=== PATIENT | female | born 1930 | race Caucasian/White ===

== ENCOUNTER → 2017-10-20 | Outpatient (CLI) | payer MEDICARE, OTHER | END | disposition home or self-care (01) | LOC: KCIC CT 13:00 | DX: Z01.818 Encounter for other preprocedural examination (principal); S43.085A Other dislocation of left shoulder joint, initial encounter; M75.102 Unspecified rotator cuff tear or rupture of left shoulder, not specified as traumatic; M19.012 Primary osteoarthritis, left shoulder; M25.712 Osteophyte, left shoulder; X58.XXXA Exposure to other specified factors, initial encounter; Y93.89 Activity, other specified; Y92.89 Other specified places as the place of occurrence of the external cause; Y99.8 Other external cause status | CPT/HCPCS: 73200 ==

== ENCOUNTER → 2018-08-23 | Outpatient (CLI) | payer MEDICARE, OTHER ==
[2013-11-25 08:46] VITALS: BP 148/70
[~2018-08-23] MED LIST: ACET325T9 PO; AMIO100T4 PO; AMLO5TAB4 PO; ASPI-482 PO; BIOTENE DRY MO237 ML MM; CLIN150C14 PO; ESZO1TAB8 PO; FOLI1TAB16 PO; HYDR200T71 PO; LOSA100T2 PO; METAMUCIL425 GM PO; METH2.5T PO; OXYB10TA PO; PIRO20CA PO; RANI150T21 PO
--- NOTE | 2018-08-23 16:12 | RAD ---
Three-phase bone scan, 08/23/2017: HISTORY: Left knee pain Imaging of both knees was performed following IV injection of 26 mCi of technetium 99m MDP. The dynamic flow study and the blood pool image demonstrates slightly increased activity at the left knee centered along the superior aspect of the femoral component of the prosthesis in the patellar region. There is moderately increased activity at this level on the delayed images as well. There is also mildly increased activity along the margin of the proximal tibia adjacent to the tibial component of the knee prosthesis. On the delayed images there are is also moderately increased activity at the right knee joint compatible with arthritis. IMPRESSION: 1. Moderately increased activity at the left patellar level and to a lesser degree along the margin of the tibial component of the left knee prosthesis. 2. Moderately increased activity at the right knee compatible with arthritis. Electronically signed by: Corbin Mo MD (08/23/2018 4:08 PM) [facility]
== END | disposition home or self-care (01) ==
LOC: NM 08:05
PROVIDERS: ATTEND Orthopaedic Surgery
DX: Z47.1 Aftercare following joint replacement surgery (principal); I10 Essential (primary) hypertension; Z79.01 Long term (current) use of anticoagulants; Z96.652 Presence of left artificial knee joint
CPT/HCPCS: 78315; 96374; A9503